=== PATIENT | male | born 2000 | race American Indian/Alaskan Native ===

== ENCOUNTER 2020-01-24 21:01 | Emergency (ER) | payer BC, MEDICAID ==
[2020-01-24] MEDS ORDERED: Proparacaine 0.5% Ophth Soln 15 ML Bottle EYELF ONE (21:34)
--- NOTE | 2020-01-24 21:56 | EDM.PDOC ---
ED HPI GENERAL MEDICAL PROBLEM - General Chief Complaint: Eye Problems Stated Complaint: LEFT EYE VISION DISTURBANCE Time Seen by Provider: 01/24/20 21:50 Source of Information: Reports: Patient, RN, RN Notes Reviewed History Limitations: Reports: No Limitations - History of Present Illness INITIAL COMMENTS - FREE TEXT/NARRATIVE: Patient had a feeling like he had something in his left eye. He was rubbing the eye and it became painful. He feels he lost some of his peripheral vision of the left eye. He came in to make sure there is nothing in his eye or did not create injury. Onset: Today, Sudden Onset Time: 19:00 Duration: Minutes:, Constant Location: Reports: Head (left eye) Quality: Reports: Burning Severity: Moderate Improves with: Reports: None Worsens with: Reports: None Context: Reports: Trauma Associated Symptoms: Reports: No Other Symptoms Left Eye Pain Score (Numeric/FACES): 2 (more irritation/burning) - Related Data Allergies Allergy/AdvReac Type Severity Reaction Status Date / Time No Known Allergies Allergy Verified 02/03/14 23:14 Home Meds: Home Meds diphenhydrAMINE HCL [Benadryl] 25 mg PO ASDIRECTED PRN 02/03/14 [History] Loratadine [Claritin] 10 mg PO ASDIRECTED PRN 01/24/20 [History] Past Medical History HEENT History: Reports: None Cardiovascular History: Reports: None Respiratory History: Reports: None Gastrointestinal History: Reports: None Genitourinary History: Reports: None Musculoskeletal History: Reports: None Neurological History: Reports: None Psychiatric History: Reports: ADHD, Other (See Below) Other Psychiatric History: alcohol syndrome Endocrine/Metabolic History: Reports: None Hematologic History: Reports: None Immunologic History: Reports: None Oncologic (Cancer) History: Reports: None Dermatologic History: Reports: None - Past Surgical History Head Surgeries/Procedures: Reports: None Social & Family History - Tobacco Use Smoking Status *Q: Never Smoker - Caffeine Use Caffeine Use: Reports: Soda - Recreational Drug Use Recreational Drug Use: Yes Recreational Drug Type: Reports: Marijuana/Hashish ED ROS GENERAL - Review of Systems Review Of Systems: See Below Constitutional: Reports: No Symptoms HEENT: Reports: Eye Pain (relates it more as an irritation or burning versus pain), Vision Change (he thinks his peripheral vision on the left eye is altered). Denies: Contact Lenses Respiratory: Reports: No Symptoms Cardiovascular: Reports: No Symptoms Endocrine: Reports: No Symptoms GI/Abdominal: Reports: No Symptoms : Reports: No Symptoms Musculoskeletal: Reports: No Symptoms Skin: Reports: No Symptoms Neurological: Reports: No Symptoms Psychiatric: Reports: No Symptoms Hematologic/Lymphatic: Reports: No Symptoms Immunologic: Reports: No Symptoms ED EXAM GENERAL W FULL EYE - Physical Exam Exam: See Below Exam Limited By: No Limitations General Appearance: Alert, WD/WN, Anxious Visual Acuity (R) 20/: 15 Visual Acuity (L) 20/: 20 With Correction: Yes Eyelids: Right: Normal Appearance, Left: Edema (slight swelling low lid), Erythema, Lid Everted for Exam Conjunctiva & Sclera: Bilateral: Normal Appearance Cornea Exam: Left: Corneal Abrasion, Examined with Flourescein Extraocular Movements: Bilateral: Intact Pupils: Normal Accommodation Pupillary Size: Bilateral: 3 mm Pupillary Reaction: Bilateral: Brisk Respiratory/Chest: No Respiratory Distress, Lungs Clear Cardiovascular: Normal Peripheral Pulses, Regular Rate, Rhythm Neurological: Alert, Oriented Psychiatric: Normal Affect, Normal Mood ED EYE w/ Add Procedure - Eye Procedure Alcaine Drops Administered: Yes (Administered per nurse. ) Progress: Once eye was numb. Fluorescein was applied to the eye. Utilizing bluelight, abrasions were identified at the 9:00 11:00 and 2:00. No foreign body was identified. Eyelid was inverted. Using slit lamp for further investigation, no foreign bodies were identified. Patient tolerated the procedure well. Course - Vital Signs Last Recorded V/S: Last Vital Signs Temp 36.9 C 01/24/20 21:28 Pulse 90 01/24/20 21:28 Resp 16 01/24/20 21:28 BP 150/87 H 01/24/20 21:28 Pulse Ox 99 01/24/20 21:28 - Orders/Labs/Meds Meds: Medications Discontinued Medications Generic Name Dose Route Start Last Admin Trade Name Freq PRN Reason Stop Dose Admin Proparacaine HCl 1 ml 01/24/20 21:34 01/24/20 21:36 Proparacaine 0.5% Ophth Soln EYELF 01/24/20 21:35 1 ml ONETIME ONE Administration - Re-Assessments/Exams Free Text/Narrative Re-Assessment/Exam: 01/24/20 22:09 Patient tolerated eye exam without difficulty. He is instructed to follow-up with his eye care provider due to perceived peripheral vision changes which are unable to be verified or tested in the ER environment. Visual exam before and after shows vision post examination. He is provided with antibiotic eye drops to be applied 4 times daily for 3 to 4 days. If he has any vision changes or increase in pain he is to come back to the ER or go directly to his eye care provider. Departure - Departure Time of Disposition: 22:34 Disposition: Home, Self-Care 01 Clinical Impression: Eye abrasion - Discharge Information *PRESCRIPTION DRUG MONITORING PROGRAM REVIEWED*: Not Applicable *COPY OF PRESCRIPTION DRUG MONITORING REPORT IN PATIENT JUSTYNA: Not Applicable Instructions: Eye Contusion, [id number] Referrals: PCP,None [Primary Care Provider] - Forms: ED Department Discharge Additional Instructions: prescription for antibiotic eyedrop to be applied 4 times a day for 3 to 4 days. Return to ER or go directly to eye care provider if changes in vision, slight or increased eye pain occur. Sepsis Event Note (ED) - Evaluation Sepsis Screening Result: No Definite Risk - Focused Exam Vital Signs: Vital Signs Temp Pulse Resp BP Pulse Ox 01/24/20 21:28 36.9 C 90 16 150/87 H 99 01/24/20 21:22 36.9 C 90 16 150/87 H 99
== END 2020-01-24 22:34 | disposition home or self-care (01) ==
LOC: JP.ED 21:01
DX: S05.02XA Injury of conjunctiva and corneal abrasion without foreign body, left eye, initial encounter (principal); X58.XXXA Exposure to other specified factors, initial encounter
CPT/HCPCS: 65222; 99282; 99283